=== PATIENT | male | born 1980 | race Caucasian/White ===

== ENCOUNTER 2018-11-12 16:30 | Emergency (ER) | payer OTHER ==
[~2018-11-12] VITALS: Ht 172.7 cm; Wt 59.7 kg
[2018-11-12 16:36] VITALS: Ht 172.7 cm; Wt 59.7 kg
[2018-11-12] MEDS ORDERED: OLANZAPINE (ODT) 5 MG TAB PO STA (17:22)
--- NOTE | 2018-11-12 17:26 | ERD ---
ER Documentation Chief Complaint Chief Complaint SI x2 days w/ attempt to run into traffic today-been off psych meds x2 days HPI This is a 38-year-old man complaining of suicidal ideation and states he walked [place] traffic [place] with his eyes closed, he admits to using methamphetamine over the last 3 days and has a history of methamphetamine abuse as well. Patient does have a history of psychiatric illness and denies using his medications. He denies fevers or chills, no chest pain or shortness of breath, no headache or blurry vision ROS All systems reviewed and are negative except as per history of present illness. Allergies Allergies: Coded Allergies: Penicillins (Verified Allergy, Unknown, 11/12/18) benztropine (Verified Allergy, Unknown, 11/12/18) ziprasidone (Verified Allergy, Unknown, 11/12/18) PMhx/Soc Drug abuse, psychiatric illness Physical Exam Vitals Vital Signs Date Temp Pulse Resp B/P (MAP) Pulse Ox O2 O2 Flow FiO2 Time Delivery Rate 11/12/18 97.6 81 16 122/71 98 16:36 (88) Physical Exam GENERAL: Well-developed, well-nourished, well-hydrated, agitated, afebrile CARDIAC: Regular rate and rhythm, no murmurs rubs or gallops LUNGS: Clear bilaterally no wheezing crackles or stridor SKIN: Warm and dry to touch, no abrasions, contusions, or hematomas, no lacerations, no ecchymosis, no target lesions, and without ulcers EXTREMITIES: No clubbing cyanosis or edema, calves are bilaterally symmetrical, no Homans sign, no popliteal cord sign. Distal pulses equal and bilateral PSYCH: Agitated, anxious Result Diagram: 11/12/18 1734 11/12/18 1734 Results 24 hrs Laboratory Tests Test 11/12/18 17:34 White Blood Count 7.7 10^3/ul Red Blood Count 5.57 10^6/ul Hemoglobin 15.8 g/dl Hematocrit 47.6 % Mean Corpuscular Volume 85.5 fl Mean Corpuscular Hemoglobin 28.4 pg Mean Corpuscular Hemoglobin Concent 33.2 g/dl Red Cell Distribution Width 13.2 % Platelet Count 251 10^3/UL Mean Platelet Volume 9.7 fl Immature Granulocytes % 0.300 % Neutrophils % 60.2 % Lymphocytes % 30.4 % Monocytes % 6.5 % Eosinophils % 1.6 % Basophils % 1.0 % Nucleated Red Blood Cells % 0.0 /100WBC Immature Granulocytes # 0.020 10^3/ul Neutrophils # 4.7 10^3/ul Lymphocytes # 2.4 10^3/ul Monocytes # 0.5 10^3/ul Eosinophils # 0.1 10^3/ul Basophils # 0.1 10^3/ul Nucleated Red Blood Cells # 0.0 10^3/ul Urine Color YELLOW Urine Clarity CLEAR Urine pH 5.0 Urine Specific [place] 1.030 Urine Ketones NEGATIVE mg/dL Urine Nitrite NEGATIVE mg/dL Urine Bilirubin NEGATIVE mg/dL Urine Urobilinogen NEGATIVE mg/dL Urine Leukocyte Esterase NEGATIVE Erick/ul Urine Hemoglobin NEGATIVE mg/dL Urine Glucose NEGATIVE mg/dL Urine Total Protein NEGATIVE mg/dl Sodium Level 138 mmol/L Potassium Level 4.6 mmol/L Chloride Level 101 mmol/L Carbon Dioxide Level 28 mmol/L Anion Gap 9 Blood Urea Nitrogen 26 mg/dl Creatinine 0.87 mg/dl Est Glomerular Filtrat Rate mL/min > 60 mL/min Glucose Level 92 mg/dl Calcium Level 10.3 mg/dl Total Bilirubin 0.7 mg/dl Direct Bilirubin 0.00 mg/dl Indirect Bilirubin 0.7 mg/dl Aspartate Amino Transf (AST/SGOT) 31 IU/L Alanine Aminotransferase (ALT/SGPT) 39 IU/L Alkaline Phosphatase 60 IU/L Total Protein 8.7 g/dl Albumin 4.9 g/dl Globulin 3.80 g/dl Albumin/Globulin Ratio 1.28 Salicylates Level < 1.0 mg/dl Urine Opiates Screen Negative Acetaminophen Level < 10.0 ug/ml Urine Barbiturates Negative Urine Amphetamines Screen POSITIVE Urine Benzodiazepines Screen Positive Urine Cocaine Screen Negative Urine Cannabinoids Negative Ethyl Alcohol Level < 10.0 mg/dl Current Medications Medications Dose Sig/Julio Cesar Start Time Status Last (Trade) Ordered Route PRN Stop Time Admin Dose Reason Admin Olanzapine 10 mg ONCE STAT 11/12/18 DC 11/12/18 (Zyprexa PO 17:22 17:41 Zydis) 11/12/18 17:24 Procedures/MDM Security one-to-one watch was established and psychiatric evaluation was ordered. I administered olanzapine 10 mg p.o. x1 for his symptoms. Patient's behavioral symptoms have stabilized while in the department. Patient is medically cleared and appropriate for psychiatric evaluation and work up. No e/o neurologic, toxic, infectious, or metabolic cause. CBC and electrolytes are normal, liver function tests were normal, ethanol level was negative, drug screen positive for methamphetamines. Ethanol level was negative, aspirin Tylenol levels negative Observation Note: Time: 5 hours Family Hx: No Hypertension Evaluation: Multiple exams showed improving symptoms and no evidence of worsening mental status or cardiopulmonary decompensation. Patient will be evaluated by tele-psychiatry, and he recommended psychiatric hold on transfer to [facility] facility. He also recommended trihexyphenidyl 2 mg p.o. twice daily to begin in the morning as well as fluphenazine 1 mg p.o. twice daily, again to begin in the morning Departure Diagnosis: Primary Impression: Suicidal ideation Additional Impressions: Methamphetamine abuse Psychosis Psychosis type: schizoaffective disorder Schizoaffective disorder type: bipolar Qualified Codes: F25.0 - Schizoaffective disorder, bipolar type Condition: REBA Deal MD Nov 12, 2018 17:26
--- NOTE | 2018-11-12 21:24 | PSY ---
Date/Time of Note Date/Time of Note DATE: 11/12/18 TIME: 21:23 Psychiatric Subjective Eval Consent Pt consented to telemedicine: Yes Subjective Evaluation Patient location: emergency Chief Complaint: SI x2 days w/ attempt to run into traffic today-been off psych meds x2 days Medical history Problems Medical Problems: (1) Methamphetamine abuse Status: Acute (2) Suicidal ideation Status: Acute Allergies: Coded Allergies: Penicillins (Verified Allergy, Unknown, 11/12/18) benztropine (Verified Allergy, Unknown, 11/12/18) ziprasidone (Verified Allergy, Unknown, 11/12/18) Psychiatric Objective Eval Mental Status Examination: Laboratory Results Laboratory Tests Test 11/12/18 17:34 White Blood Count 7.7 10^3/ul Red Blood Count 5.57 10^6/ul Hemoglobin 15.8 g/dl Hematocrit 47.6 % Mean Corpuscular Volume 85.5 fl Mean Corpuscular Hemoglobin 28.4 pg Mean Corpuscular Hemoglobin Concent 33.2 g/dl Red Cell Distribution Width 13.2 % Platelet Count 251 10^3/UL Mean Platelet Volume 9.7 fl Immature Granulocytes % 0.300 % Neutrophils % 60.2 % Lymphocytes % 30.4 % Monocytes % 6.5 % Eosinophils % 1.6 % Basophils % 1.0 % Nucleated Red Blood Cells % 0.0 /100WBC Immature Granulocytes # 0.020 10^3/ul Neutrophils # 4.7 10^3/ul Lymphocytes # 2.4 10^3/ul Monocytes # 0.5 10^3/ul Eosinophils # 0.1 10^3/ul Basophils # 0.1 10^3/ul Nucleated Red Blood Cells # 0.0 10^3/ul Urine Color YELLOW Urine Clarity CLEAR Urine pH 5.0 Urine Specific [place] 1.030 Urine Ketones NEGATIVE mg/dL Urine Nitrite NEGATIVE mg/dL Urine Bilirubin NEGATIVE mg/dL Urine Urobilinogen NEGATIVE mg/dL Urine Leukocyte Esterase NEGATIVE Erick/ul Urine Hemoglobin NEGATIVE mg/dL Urine Glucose NEGATIVE mg/dL Urine Total Protein NEGATIVE mg/dl Sodium Level 138 mmol/L Potassium Level 4.6 mmol/L Chloride Level 101 mmol/L Carbon Dioxide Level 28 mmol/L Anion Gap 9 Blood Urea Nitrogen 26 mg/dl Creatinine 0.87 mg/dl Est Glomerular Filtrat Rate mL/min > 60 mL/min Glucose Level 92 mg/dl Calcium Level 10.3 mg/dl Total Bilirubin 0.7 mg/dl Direct Bilirubin 0.00 mg/dl Indirect Bilirubin 0.7 mg/dl Aspartate Amino Transf (AST/SGOT) 31 IU/L Alanine Aminotransferase (ALT/SGPT) 39 IU/L Alkaline Phosphatase 60 IU/L Total Protein 8.7 g/dl Albumin 4.9 g/dl Globulin 3.80 g/dl Albumin/Globulin Ratio 1.28 Salicylates Level < 1.0 mg/dl Urine Opiates Screen Negative Acetaminophen Level < 10.0 ug/ml Urine Barbiturates Negative Urine Amphetamines Screen POSITIVE Urine Benzodiazepines Screen Positive Urine Cocaine Screen Negative Urine Cannabinoids Negative Ethyl Alcohol Level < 10.0 mg/dl Assessment and Plan Recommendation/Plan Discharge Disposition: Psychiatric inpatient Legal Status: Place involuntary hold Assessment Additional comments: IDENTIFYING INFORMATION: 38 year old Male patient who is currently located at the hospital and for whom psychiatric consultation was requested. SOURCES OF INFORMATION: The patient who appears to be somewhat reliable and the medical records; the nursing staff. CHIEF COMPLAINT: "I am tired". HISTORY OF PRESENT ILLNESS: The patient was interviewed via telemedicine in the presence of and under the supervision of nursing staff of the hospital. The consent to conducting this interview via telemedicine was obtained by the nursing staff at the hospital. DALE Perez reports that the patient presented with SI with plan to run into traffic. Is not on a 5150 hold. Per ER doc note, the pt reported that he walked into traffic earlier today with his eyes close. The patient reports having AH, SI. The patient denies using alcohol heavily or regularly. The patient reports using meth occasionally. The patient denies using any other substances. In terms of past psychiatric history, the patient reports having a history of past psychiatric hospitalizations. The patient reports having a history of past suicide attempts. PAST MEDICAL HISTORY: seizures. CURRENT MEDICATIONS: prolixin, artane, effexor- questionable compliance. ALLERGIES TO MEDICATIONS: PCN, benztropine, geodon. LABORATORY TESTS: CBC with MCH 28.4, CMP wnl, UDS + amph, benzos, alcohol level not detected. SOCIAL HISTORY: Unable to assess, because the patient was not able to participate in the interview. REVIEW OF SYSTEMS: unable to assess due to the patient not being able to cooperate. MENTAL STATUS EXAMINATION: General Appearance and Behavior: somnolent, appears to be responding to internal stimuli, uncooperative with most of the interview, distant with the current interviewer, makes poor eye contact, poorly groomed, decreased psychomotor activity, no abnormal movements noted. Speech: slow rate, regular rhythm, increased latency, low volume, decreased amount. Flow of thought: tangential, illogical, not goal-directed. Content of thought: + auditory hallucinations, + paranoid delusions, no visual hallucinations, + suicidal ideation; no homicidal ideation. Mood: did not respond. Affect: flat, decreased range of reactivity. Attention: normal based on the interview. Insight: poor. Judgment: poor. Memory: normal based on the interview. Sensorium: alert and oriented to person, unable to assess further. ASSESSMENT: The patient's presentation and history are consistent with the diagnosis of unspecified psychotic disorder, stimulant use disorder The patient presents with an exacerbation of psychosis in the context of medication noncompliance, psychosocial stressors and substance use. PLAN: - Medication management: Would start fluphenazine 1 mg by mouth twice a day, artane 2 mg by mouth twice a day. Would start haloperidol 5 mg IM PRN severe agitation q4 hours. Would start diphenhydramine 50 mg IM PRN severe agitation q4 hours. Would start lorazepam 2 mg IM PRN severe agitation q4 hours Will defer to the inpatient psychiatry team for other medication changes. - Labs: No other laboratory tests are needed at this time. - Psychotherapy: Provided supportive psychotherapy and psychoeducation. - Disposition: Would recommend involuntary admission to the inpatient psychiatric unit given the severity of the patient's psychiatric condition and the fact that the patient is an imminent danger to self and/or others so long as the patient has been cleared medically for admission to psychiatry. Inpatient psychiatric admission is at this time the least restrictive environment where the patient can receive the psychiatric care that is needed. Would place on suicide precautions. The patient fulfills criteria for being placed on an involuntary hold for being a danger to self due to a psychiatric disorder. JO ANN PALMA MD Nov 12, 2018 21:24
[2018-11-13 08:45] VITALS: BP 126/91; PULSE 96; RESP 17
== END 2018-11-13 09:04 ==
LOC: E/R 16:30
DX: F15.10 Other stimulant abuse, uncomplicated (principal); F25.0 Schizoaffective disorder, bipolar type; R40.2142 Coma scale, eyes open, spontaneous, at arrival to emergency department; R40.2252 Coma scale, best verbal response, oriented, at arrival to emergency department; R40.2362 Coma scale, best motor response, obeys commands, at arrival to emergency department
CPT/HCPCS: 36415; 80053; 80307; 81003; 85025; Z7502; Z7610; 99285